=== PATIENT | female | born 1960 | race Caucasian/White ===

== ENCOUNTER 2017-12-02 16:23 | Emergency (ER) | payer SELFPAY ==
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
[2017-12-02] MEDS ORDERED: METOCLOPRAMIDE HCL 10 MG TABLET (FP) PO ONE ×2 (16:59→17:12)
[2017-12-02] MEDS ORDERED: diphenhydrAMINE HCL 25 MG CAPSULE (FP) PO ONE ×2 (16:59→17:12)
[2017-12-02] MEDS ORDERED: ACETAMINOPHEN 500 MG TABLET (FP) PO ONE (16:59)
[2017-12-02 17:01] VITALS: BMI 25.7
[2017-12-02] MEDS ORDERED: ACETAMINOPHEN 325 MG TABLET (FP) ONE (17:11)
[2017-12-02 19:27] VITALS: BP 154/96; PULSE 85; TEMP 97.8
== END 2017-12-02 19:15 | disposition home or self-care (01) ==
LOC: JER 16:23
DX: R51 Headache (principal); Z57.0 Occupational exposure to noise; G43.909 Migraine, unspecified, not intractable, without status migrainosus; I10 Essential (primary) hypertension; E03.9 Hypothyroidism, unspecified
CPT/HCPCS: 70450-TC; 72125-TC; 99284-25